=== PATIENT | male | born 1970 | race Caucasian/White ===

== ENCOUNTER 2016-09-13 13:01 | Outpatient (RCR) | payer BC ==
[2016-07-06 17:22] VITALS: BP 114/81
[~2016-09-13 13:01] MED LIST: ANDROGEL2.5 G1 TD; CATAPRES 0.1MG0.1 MG; DICLOFENAC SOD100 M1 PO; ESCITALOPRAM20 MG PO; LASIX20 M1 PO; LISINOPRIL10 MG PO; LORAZEPAM0.5 M1 PO; NORCO 10-325 T1 EACH PO; NORTRIPTYLINE H50 M1 PO; ZOLPIDEM TART10 MG PO
== END 2016-11-10 10:26 | disposition home or self-care (01) ==
LOC: PT 13:01
DX: Z47.89 Encounter for other orthopedic aftercare (principal)

== ENCOUNTER 2017-11-21 04:59 | Emergency (ER) | payer BC ==
[~2017-11-21] VITALS: Ht 198.1 cm; Wt 206.4 kg
[2017-11-21] MEDS ORDERED: GLUCOPHAGE500 MG/TAB PO (05:21)
[2017-11-21] MEDS ORDERED: LEXAPRO 10MG10 MG PO (05:22)
[2017-11-21 06:14] LABS: HEMATOCRIT 47.3 % (42.0-52.0); HEMOGLOBIN 16.6 g/dL (13.5-18.0); MEAN CELL VOLUME 85 fl (78-100); MEAN CORPUSCULAR HEMOGLOBIN 30 pg (27-31); MEAN CORPUSCULAR HGB CONC 35 g/dL (33-37); MEAN PLATELET VOLUME 9.2 fl (7.4-10.4); PLATELET COUNT 281 K/mm3 (130-400); RED CELL DISTRIBUTION WIDTH 13.1 % (11.5-14.5); WHITE BLOOD COUNT 11.1 K/mm3 (4.8-10.8)
[2017-11-21 06:32] LABS: ALBUMIN 4.8 g/dL (3.5-5.0); BUN/CREATININE RATIO 27.8 (6.0-26.0); CALCIUM 10.1 mg/dL (8.4-10.2); TOTAL BILIRUBIN 1.8 mg/dL (0.2-1.3); TOTAL PROTEIN 9.3 g/dL (6.3-8.2)
[2017-11-21 06:33] LABS: LIPASE 63 U/L (23-300)
[2017-11-21 06:39] LABS: BAND 1 % (0-10); LYMPHOCYTE 5 % (20-51); MONOCYTE 5 % (3-10); NEUTROPHILS 88 % (42-75)
[2017-11-21] MEDS ORDERED: ZOFRAN4 M2 PO (08:59)
[2017-11-21 09:11] VITALS: BP 158/72
== END 2017-11-21 09:03 | disposition home or self-care (01) ==
LOC: ED 04:59
PROVIDERS: Family Medicine
DX: R11.2 Nausea with vomiting, unspecified (principal); R19.7 Diarrhea, unspecified; R10.32 Left lower quadrant pain; R10.12 Left upper quadrant pain; E11.9 Type 2 diabetes mellitus without complications; R61 Generalized hyperhidrosis; Z87.442 Personal history of urinary calculi; Z79.84 Long term (current) use of oral hypoglycemic drugs; F41.9 Anxiety disorder, unspecified; F32.9 Major depressive disorder, single episode, unspecified
CPT/HCPCS: J1885; J7030

== ENCOUNTER → 2020-10-10 | Outpatient (REF) ==
[~2020-10-10] MED LIST changes: +GLUCOPHAGE500 MG/TAB PO; +LEXAPRO 10MG10 MG PO; +ZOFRAN4 M2 PO
== END ==
LOC: LAB 10:56
DX: Z12.5 Encounter for screening for malignant neoplasm of prostate (principal); E11.9 Type 2 diabetes mellitus without complications; E23.0 Hypopituitarism; E78.2 Mixed hyperlipidemia; I10 Essential (primary) hypertension